=== PATIENT | female | born 1950 | race Caucasian/White ===

== ENCOUNTER 2017-11-21 13:49 | Observation (INO) | payer MEDICARE ==
[2017-11-21 14:37] LABS: #Eosinphils 0.2 thou/uL (0.0-0.7); #Lymphocytes 1.5 thou/uL (1.20-3.40); #Monocytes 0.5 thou/uL (0.11-0.59); #Neutrophils 2.8 thou/uL (1.40-6.50); %Basophils 0.4 % (0.0-1.0); %Eosinophils 3.3 % (0.0-10.0); %Lymphocytes 30.2 % (21.0-51.0); %Monocytes 9.5 % (0.0-10.0); %Neutrophils 56.6 % (42.0-75.0); Hemoglobin 12.7 g/dL (12.0-16.0); Mean Corpuscular HGB CONC 32.7 g/dL (32.0-36.0); Mean Corpuscular Hemoglobin 29.5 pg (27.0-31.0); Mean Corpuscular Volume 90.2 fl (81.0-99.0); Platelet Count 198 thou/uL (130-400); RBC Distribution Width 11.5 % (11.5-14.5); Red Blood Cell (RBC) Count 4.31 mill/uL (4.20-5.40); White Blood Cell (WBC) Count 4.9 thou/uL (4.8-10.8)
[2017-11-21 14:57] LABS: ALT (SGPT) 15 U/L (8-55); AST (SGOT) 19 U/L (5-34); Albumin 4.1 g/dL (3.4-4.8); Alkaline Phosphatase 58 U/L (40-150); Anion Gap 14 mmol/L (10-20); BUN (Urea Nitrogen) 21 mg/dL (9.8-20.1); Bilirubin, Total 0.6 mg/dL (0.2-1.2); CK (CPK) 64 U/L (29-168); Calc. Creatinine Clearance 0 mL/min (70-130); Calcium 9.6 mg/dL (7.8-10.44); Carbon Dioxide 26 mmol/L (23-31); Chloride 105 mmol/L (98-107); Estimated GFR-MDRD 70; Glucose 117 mg/dL (80-115); Potassium 3.2 mmol/L (3.5-5.1); Protein, Total 7.1 g/dL (6.0-8.3); Sodium 142 mmol/L (136-145)
[2017-11-21] MEDS ORDERED: Nitroglycerin 2% Ointment 1 INCH/1 GM Packet ONE (15:01)
[2017-11-21 15:03] LABS: CKMB 2.4 ng/mL (0-6.6); Troponin I Less than 0.010 ng/mL (< 0.028)
--- NOTE | 2017-11-21 15:12 | RAD ---
CHEST 1 VIEW: HISTORY: Chest pain. Allergic reaction. COMPARISON: 05/15/07. FINDINGS: Cardiac silhouette magnified by projection. Pulmonary vasculature unremarkable. Mediastinum midline . No lobar consolidation or evidence of pneumothorax. radiation monitor leads overlie the chest. IMPRESSION: No active cardiopulmonary abnormalities are demonstrated. POS: [facility]
[2017-11-21] MEDS ORDERED: Nitroglycerin 0.4 MG TAB (25 Tab Bottle) PO PRN (16:17)
[2017-11-21] MEDS ORDERED: Ondansetron HCl/PF 4 MG/2 ML Vial IVP PRN (16:17)
[2017-11-21] MEDS ORDERED: Bisacodyl 5 MG TAB PO PRN (16:17)
[2017-11-21] MEDS ORDERED: Potassium Chloride 20 MEQ TAB PO SCH (16:30)
--- NOTE | 2017-11-21 16:48 | HP ---
PRIMARY CARE PROVIDER: Dr. Eric Velazquez. CHIEF COMPLAINT: Chest pain. HISTORY OF PRESENT ILLNESS: Ms. Gerber is a pleasant 67-year-old lady who was seen at [facility] on 11/21/2017. She reports that she ate some Martiniquais food for lunch today. This was followed by a sensation of tigh tness in the chest. She took Benadryl thinking may be an allergic reaction. Benadryl did not help. She describes it as a sensation of tightness in the retrosternal region, radiating to her jaw, laste d one hour, resolved, then subsequently recurred. She found relief after she received nitroglycerin in the emergency room. Otherwise, she cannot recall any aggravating or relieving factors. The sensa tion was accompanied by lightheadedness, nausea and shortness of breath. The tightness was 10/10 at its worst and is now 0/10. REVIEW OF SYSTEMS: All other systems reviewed and found to be negative. PAST MEDICAL HISTORY: Significant for hypothyroidism, low back pain, breast cancer detected in the r ight breast when she was 40 years old and in the left breast 2 years ago, depression, and dyslipidemi a. PAST SURGICAL HISTORY: Carpal tunnel surgery x2, appendectomy, hysterectomy, and bilateral mastectom y. PSYCHIATRIC HISTORY: Anxiety and depression. SOCIAL HISTORY: The patient denies tobacco use, alcohol use or recreational drug use. FAMILY HISTORY: Significant for myocardial infarctions in 2 aunts and grandfather. ALLERGIES: NONSTEROIDAL ANTI-INFLAMMATORY DRUGS. CURRENT MEDICATIONS: Doses need to be clarified, she reports taking hydrocodone, Prozac, hydrochloro thiazide, Xanax and Synthroid. PHYSICAL EXAMINATION: GENERAL: On examination, Ms. Gerber is awake and alert, not in acute distress. She is obese. VITAL SIGNS: Blood pressure is 127/62, pulse is 62. She is breathing at rate of 15 and saturating 9 6% on room air. She is afebrile. EYES: No scleral icterus. No conjunctival pallor. ENT: Moist mucosal membranes, no oropharyngeal erythema or exudates. NECK: Supple, nontender, normal range of movement. Trachea is midline. RESPIRATORY: Accessory muscles of breathing are not active. Chest wall movements are symmetric bila terally. LUNGS: Clear to auscultation without wheeze, rhonchi or crepitations. CARDIOVASCULAR: S1 and S2 are heard, regular. Peripheral pulses palpable. No carotid bruit, no per icardial rub. ABDOMEN: Soft and nontender. Bowel sounds are heard, no hepatomegaly, no splenomegaly. NEUROLOGIC: Cranial nerves II-XII intact. Deep tendon reflexes are 2+. SKIN: No rashes or subcutaneous nodules. LYMPHATIC: No cervical lymphadenopathy. PSYCHIATRIC: Normal mood, normal affect, patient is oriented to person, place, and time. IMAGING DATA AND LABORATORY DATA: Ms. Gerber's labs and investigations were reviewed. I reviewed h er electrocardiogram, which shows normal sinus rhythm with T-wave inversions in the anterior leads an d T-wave flattening in the inferior leads. I also reviewed her chest x-ray, which does not show any pulmonary infiltrates. She has an unremarkable CBC, decreased potassium of 3.2, elevated blood urea nitrogen of 21, otherwise unremarkable comprehensive metabolic profile, normal lipase, normal troponi n I and normal BNP. ASSESSMENT AND PLAN: Ms. Gerber is a pleasant 67-year-old lady who was seen at [facility] on 11/21/2017. Her problem list includes: 1. Chest pain: Etiology is unclear at this time. Patient will be admitted to the hospital on obser vation status for telemetry monitoring and for stress test. We will also recheck her troponin level. 2. Hypokalemia: Replace potassium and recheck potassium level. 3. Hypothyroidism: Continue Synthroid once dose is clarified. 4. Depression: Continue home medications once dose is clarified. Patient denies any recent long-distance travel. She reports that when her symptoms started at home, she used her 's CPAP machine with some relief. Many thanks for allowing me to participate in your patient's care. Please feel free to contact me wi th any questions or concerns. LEVEL OF RISK: High. LEVEL OF COMPLEXITY: High.
[2017-11-21] MEDS: HYDROcodone/Acetaminophen 5/325 mg Tablet PO PRN ×2 (17:37→21:30)
[2017-11-21 17:55] VITALS: BMI 37.4
[2017-11-21 18:18] LABS: Troponin I 0.062 ng/mL (< 0.028)
[2017-11-21 21:05] LABS: Troponin I 0.078 ng/mL (< 0.028)
[2017-11-21] MEDS ORDERED: ALPRAZolam 0.5 MG TAB PO SCH (23:00)
[2017-11-22] MEDS: HYDROcodone/Acetaminophen 5/325 mg Tablet PO PRN (04:48)
[2017-11-22 05:19] LABS: #Eosinphils 0.2 thou/uL (0.0-0.7); #Lymphocytes 2.4 thou/uL (1.20-3.40); #Monocytes 0.5 thou/uL (0.11-0.59); %Basophils 0.4 % (0.0-1.0); %Eosinophils 4.8 % (0.0-10.0); %Lymphocytes 46.5 % (21.0-51.0); %Monocytes 10.1 % (0.0-10.0); %Neutrophils 38.3 % (42.0-75.0); Mean Corpuscular Hemoglobin 29.7 pg (27.0-31.0); Mean Corpuscular Volume 90.1 fl (81.0-99.0); Mean Platelet Volume 7.9 fL (7.4-10.4); Platelet Count 184 thou/uL (130-400); RBC Distribution Width 11.7 % (11.5-14.5); Red Blood Cell (RBC) Count 4.04 mill/uL (4.20-5.40); White Blood Cell (WBC) Count 5.1 thou/uL (4.8-10.8)
[2017-11-22 05:36] LABS: Anion Gap 13 mmol/L (10-20); BUN (Urea Nitrogen) 19 mg/dL (9.8-20.1); Calc. Creatinine Clearance 132 mL/min (70-130); Calcium 9.4 mg/dL (7.8-10.44); Carbon Dioxide 25 mmol/L (23-31); Chloride 108 mmol/L (98-107); Estimated GFR-MDRD 79; Glucose 91 mg/dL (80-115); Potassium 3.8 mmol/L (3.5-5.1); Sodium 142 mmol/L (136-145)
[2017-11-22] MEDS ORDERED: Levothyroxine Sodium 100 MCG TAB PO SCH (06:00)
[2017-11-22] MEDS ORDERED: ALPRAZolam 0.5 MG TAB PO PRN (07:45)
[2017-11-22] MEDS ORDERED: FLUoxetine HCl 20 MG CAP PO SCH (09:00)
[2017-11-22] MEDS ORDERED: Triamterene/Hydrochlorothiazide 37.5 mg/25 mg Tablet PO SCH (09:00)
[2017-11-22] MEDS ORDERED: Aspirin 325 MG TAB PO SCH (09:00)
[2017-11-22] MEDS ORDERED: Enoxaparin Sodium 40 MG/0.4 ML SYRINGE SC SCH (09:00)
--- NOTE | 2017-11-22 14:30 | NM ---
CARDIAC SPECT: CLINICAL HISTORY: Chest pain. Dyslipidemia. TECHNIQUE: A stress-only myocardial perfusion scan was performed following the intravenous administration of 29. 4 mCi technetium-99m sestamibi. Pharmacologic stress with Adenosine was monitored and interpreted by Dr. Gresham. FINDINGS: Homogeneous tracer distribution is seen in the myocardial segments on the post stress images. GATED SPECT LVEF: 77%. WALL MOTION EXAM: Normal. IMPRESSION: Normal post stress myocardial perfusion scan. POS: [facility]
[2017-11-22 15:39] VITALS: BP 134/58; TEMP 97.6
--- NOTE | 2017-11-22 16:27 | CT ---
CT ANGIOGRAM THORAX WITH IV CONTRAST AND 3D RECONSTRUCTIONS: 11/22/17 HISTORY: Chest pain and chest soreness which started yesterday afternoon. History of bilateral mastectomy. COMPARISON: None available. FINDINGS: No filling defects are seen in the pulmonary arteries to suggest pulmonary embolus. The thoracic aort a is not well opacified, but the thoracic aorta is normal in caliber. Minimal vascular calcifications are seen in the region of the aortic arch. There is a less than 5 mm nodular density seen in the anterior aspect of the right middle lobe. This may be related to small focal area of nodular pleural thickening. Similar but smaller pleural based n odular density seen at the posteromedial right lower lobe. The lungs are otherwise clear. No parenchy mal pulmonary nodule, mass, or pleural effusion is seen. There is no evidence of lymphadenopathy. There is a small hiatal hernia present. Calcified granuloma is present in the liver. Remainder of the visualized upper abdomen has a grossly normal CT appearance for phase of imaging. Degenerative changes are noted in the spine. IMPRESSION: No CT evidence of a pulmonary embolus. POS: [facility]
[2017-11-22] MEDS ORDERED: ISOVUE-370 76%-LOCM 1 ML ONE (16:33)
--- NOTE | 2017-11-23 03:04 | DIS ---
DATE OF ADMISSION: 11/21/2017 DATE OF DISCHARGE: 11/22/2017 PRIMARY CARE PROVIDER: Eric Vleazquez MD DISCHARGE DIAGNOSIS: Chest pain. CONDITION OF PATIENT ON THE DAY OF DISCHARGE: Stable. I assessed Ms. Gerber on the day of discharg e. She reports that chest pain has improved. PHYSICAL EXAMINATION: VITAL SIGNS: Stable. HEART: S1 and S2 are heard, regular. LUNGS: Clear to auscultation bilaterally. DISCHARGE MEDICATIONS: No change was made to her preadmission home medications. She is being discha rged home on alprazolam 0.5 mg 3 times a day as needed, Prozac 40 mg 2 times a day, Langtry 1-/2 table ts every 8 hours, Synthroid 100 mcg daily, Maxzide 25 one tablet daily. HOSPITAL COURSE: Ms. Gerber is a pleasant 67-year-old lady who was admitted to [facility] on 11/21/2017 for chest pain. She had indeterminate troponins. She had nuclear stress test on 11/22/2017, which was normal. Her left ventricular ejection fraction was 77%. She had an e levated D-dimer. CT angiogram of the chest did not show any evidence of pulmonary embolism. She had a less than 5-mm nodular density in the anterior aspect of the right middle lobe. This may be relat ed to small focal area of nodular pleural thickening, according to radiologist. Similar but smaller pleural based nodular density was seen at the posteromedial right lower lobe. Lungs were otherwise c lear. On the day of discharge, she has white count 5100, hemoglobin 12, platelet count 184,000, sodium 142, potassium 3.8, and creatinine 0.73. Many thanks for allowing me to participate in your patient's care. Please feel free to contact me wi th any questions or concerns. DISCHARGE DISPOSITION: Home.
== END 2017-11-22 16:55 | disposition home or self-care (01) ==
LOC: ERS 13:49 → 2SW 16:00
PROVIDERS: ADMIT Internal Medicine; ATTEND Internal Medicine
DX: R07.89 Other chest pain (principal); E03.9 Hypothyroidism, unspecified; F32.9 Major depressive disorder, single episode, unspecified; E78.5 Hyperlipidemia, unspecified; E87.6 Hypokalemia; Z79.899 Other long term (current) drug therapy; Z88.6 Allergy status to analgesic agent
CPT/HCPCS: 71045; 71275; 78452; 80048 ×2; 80061; 80076; 82306; 82550; 82553; 82607; 82728; 83540; 83550; 83690; 83735; 83880; 84439; 84484 ×2; 85025; 85379; 93005; 93017; 94760; 96374; 99285; A9500; G0378; 36415; 84443; J0153; J1650; J2405

== ENCOUNTER 2020-10-11 18:05 | Emergency (ER) | payer MEDICARE | END 2020-10-11 20:35 | disposition home or self-care (01) | LOC: ERS 18:05 | DX: M25.511 Pain in right shoulder (principal); E03.9 Hypothyroidism, unspecified; W18.30XA Fall on same level, unspecified, initial encounter ==